=== PATIENT | female | born 1955 | race Caucasian/White ===

== ENCOUNTER 2019-01-12 07:05 | Day surgery (SDC) | payer MEDICARE ==
[~2019-01-12] VITALS: Ht 160 cm; Wt 54.0 kg
[2019-01-12] MEDS ORDERED: MONT10TA21 MT (08:04)
[2019-01-12] MEDS ORDERED: NITR0.4T SL (08:04)
[2019-01-12] MEDS ORDERED: ATOR80TA MT (08:04)
[2019-01-12] MEDS ORDERED: ASPI-1158 MT (08:04)
[2019-01-12] MEDS ORDERED: LEVO125T MT (08:04)
[2019-01-12] MEDS ORDERED: ISOS20TA8 MT (08:04)
[2019-01-12] MEDS ORDERED: MECL-109 MT (08:11)
[2019-01-12] MEDS ORDERED: BUPR200T31 MT (08:11)
[2019-01-12] MEDS ORDERED: TOP100 MT (08:11)
[2019-01-12] MEDS ORDERED: ASPIRIN/SOD BICARB/CITRIC ACID 324MG TAB EFF ONE (08:11)
[2019-01-12] MEDS ORDERED: ASPIRIN 325MG EC TABLET PO ONE (08:19)
[2019-01-12] MEDS ORDERED: IODIXANOL 320MG/ML 100 ML BOTTLE IV ONE (08:20)
[2019-01-12] MEDS ORDERED: MIDAZOLAM HCL 2 MG/2 ML VIAL ONE ×3 (08:21→08:51)
[2019-01-12] MEDS ORDERED: FENTANYL CITRATE/PF 50MCG/ML 2ML VIAL ONE ×2 (08:21→08:52)
[2019-01-12] MEDS ORDERED: LIDOCAINE HCL 1% 20ML VIAL (Pyxis) INJ ONE ×2 (08:21→08:46)
[2019-01-12] MEDS ORDERED: ONDANSETRON HCL 4MG/2ML INJ IV PRN (09:30)
[2019-01-12] MEDS ORDERED: ACETAMINOPHEN 325MG TABLET PO PRN (09:30)
[2019-01-12] MEDS ORDERED: MORPHINE SULFATE 2 MG/ML CPJ (NOT FOR IM USE) IV PRN (09:30)
[2019-01-12] MEDS ORDERED: ATROPINE SULFATE 1MG/10ML SYR IV PRN (09:30)
[2019-01-12] MEDS ORDERED: DIAZEPAM 5 MG TABLET PO NR (10:30)
== END 2019-01-12 16:20 | disposition home or self-care (01) ==
LOC: CCL 07:05
PROVIDERS: ATTEND Specialist
DX: R07.9 Chest pain, unspecified (principal); I25.10 Atherosclerotic heart disease of native coronary artery without angina pectoris; I12.9 Hypertensive chronic kidney disease with stage 1 through stage 4 chronic kidney disease, or unspecified chronic kidney disease; E78.5 Hyperlipidemia, unspecified; N18.9 Chronic kidney disease, unspecified; J44.9 Chronic obstructive pulmonary disease, unspecified; E03.9 Hypothyroidism, unspecified; K21.9 Gastro-esophageal reflux disease without esophagitis; F17.210 Nicotine dependence, cigarettes, uncomplicated; Z95.1 Presence of aortocoronary bypass graft; Z79.899 Other long term (current) drug therapy; Z82.49 Family history of ischemic heart disease and other diseases of the circulatory system; Z88.0 Allergy status to penicillin; Z88.2 Allergy status to sulfonamides; Z79.82 Long term (current) use of aspirin
CPT/HCPCS: 93458; 93571; 99152; 99153; C1760; C1769; C1887; C1893; J1644; J2250; J3010; J3490; Q9967; G0500

== ENCOUNTER 2019-05-13 22:20 | Emergency (ER) | payer MEDICARE ==
[~2019-05-13] VITALS: Ht 160 cm; Wt 54.0 kg
[~2019-05-13 22:20] MED LIST: ASPI-1158 MT; ATOR80TA MT; BUPR200T31 MT; ISOS20TA8 MT; LEVO125T MT; MECL-159 MT; MONT10TA21 MT; NITR0.4T SL; TOP100 MT
[2019-05-13] MEDS ORDERED: HYDROCODONE/ACETAMINOPHEN 5/325MG TABLET PO ONE (23:00)
[2019-05-13 23:26] VITALS: BP 165/86
== END 2019-05-14 00:39 | disposition home or self-care (01) ==
LOC: ER 22:20
DX: S90.02XA Contusion of left ankle, initial encounter (principal); I25.2 Old myocardial infarction; F17.200 Nicotine dependence, unspecified, uncomplicated; Z88.0 Allergy status to penicillin; Z90.710 Acquired absence of both cervix and uterus; Z95.1 Presence of aortocoronary bypass graft; Z88.2 Allergy status to sulfonamides; Z79.899 Other long term (current) drug therapy; Z79.82 Long term (current) use of aspirin; X58.XXXA Exposure to other specified factors, initial encounter; Y93.89 Activity, other specified; Y92.89 Other specified places as the place of occurrence of the external cause; Y99.8 Other external cause status
CPT/HCPCS: 29515; 73610; 99283

== ENCOUNTER → 2025-03-02 | Day surgery (SDC) | payer MEDICARE ==
[~2025-03-02] VITALS: Ht 160 cm; Wt 54.4 kg
[~2025-03-02] MED LIST changes: +ALBU18HF2 IH; -ASPI-1158 MT; +ASPI-1406 MT; +ATOR-388 PO; -ATOR80TA MT; +BIOT10TA2 PO; +BUPR-46 PO; -BUPR200T31 MT; +CALC-1139 PO; +DEXL60CA3 PO; +FLUT16SP15 NS; +GLUC1CAP28 PO; +HYDR-4009 PO; -ISOS20TA8 MT; +ISOS30TA91 PO; +LEVO-65 MT; +LEVO100T PO; -LEVO125T MT; -MECL-159 MT; +MECL50TA4 PO; +MONT-46 PO; -MONT10TA21 MT; -NITR0.4T SL; +POTA-205 MT; +POTA10CA93 PO; +PROC5TAB73 MT; +VITA-384 PO
[2025-03-02] MEDS: MAGNESIUM 2 G PREMIX 50 ML IV NR (10:00)
== END | disposition home or self-care (01) ==
LOC: OR 10:39
PROVIDERS: ATTEND Internal Medicine Critical Care Medicine
DX: E83.40 Disorders of magnesium metabolism, unspecified (principal); I12.9 Hypertensive chronic kidney disease with stage 1 through stage 4 chronic kidney disease, or unspecified chronic kidney disease; N18.9 Chronic kidney disease, unspecified; E03.9 Hypothyroidism, unspecified; K21.9 Gastro-esophageal reflux disease without esophagitis; Z79.899 Other long term (current) drug therapy
CPT/HCPCS: 83735; 36415; 96365; 96366; J3475